=== PATIENT | female | born 1995 | race Caucasian/White ===

== ENCOUNTER 2018-03-04 16:48 | Day surgery (SDC) | payer OTHER ==
[2018-03-04 17:44] VITALS: BMI 21.7
--- NOTE | 2018-03-04 18:35 | PDOC.LDHP ---
Labor and Delivery H&P Chief complaint: other (Headache at 31 weeks) HPI: Patient of Dr Zhou Here in Triage for persistent GATES (no visual changes or other neuro complaints) Seen in [facility] for headache at 1830 HPI: 23 yo WF at 31 weeks with headache. No vertigo, no photophobia, no visual changes. Some past HX of GATES and Dr Zhou has given her a RX for tylenol # 3. Last took prior to arrival. Good FM, no VB, no ROM. No CTX. No fevers. States last did marijuana in November, when her UDS was positive in clinic. review of [employer]: complete ROS done and as per HPI Current gestational age (weeks): 31 Due date: 05/06/18 Dating criteria: last menstrual period Grav: 2 Para: 1 OB History Details: x 1 Abnormal US findings: No Current medications: pre-angie vitamins, other (Tylenol #3) Previous surgical history: other (Rt kneww arthroscopy (meniscus tear)) Allergies/Adverse Reactions: Allergies Allergy/AdvReac Type Severity Reaction Status Date / Time clindamycin Allergy Severe Stomach Verified 03/04/18 17:35 Ache dexamethasone [From Decadron] Allergy Severe Anaphylaxis Verified 03/04/18 17:35 hydromorphone [From Dilaudid] Allergy Severe Anaphylaxis Verified 03/04/18 17:36 Social history: drug use (Marijauana use...says exposed to it in her house) - Physical Exam Vital signs reviewed and normal: yes (BPs 100s.70s) General: NAD Heart: RRR Lungs: CTAB Abdomen: gravid Extremeties: no edema FHT: category 1, variability present [place] contractions every: none - Assessment Headache at 31 weeks with no evidence of PIH, no gross neurological deficits on exam. Full ROM at all extremities and no facial palsy. Speech normal. Affect wnl - Plan Plan: observation in L&D (I will order CMP and UDS for now. GATES may be secondary to marijuana exposure in house. I have seen and examined the patient at bedside. )
[2018-03-04 19:09] LABS: Amphetamine Not Detected (NotDetected); Barbiturates Screen Not Detected (NotDetected); Benzodiazepine Screen Not Detected (NotDetected); Cocaine Metabolite Screen Not Detected (NotDetected); Medtox Control Line Valid? VALID (VALID); Medtox Reader # READER 4; Methadone Not Detected (NotDetected); Methamphetamine Not Detected (NotDetected); Opiate Screen Detected (NotDetected); Oxycodone Screen Not Detected (NotDetected); Phencyclidine (PCP) Not Detected (NotDetected); THC/Cannabinoid Screen Not Detected (NotDetected); Tricyclic Screen Not Detected (NotDetected)
[2018-03-04 19:31] LABS: ALT (SGPT) 7 U/L (8-55); AST (SGOT) 11 U/L (5-34); Albumin 3.5 g/dL (3.5-5.0); Alkaline Phosphatase 76 U/L (40-150); Anion Gap 12 mmol/L (10-20); BUN (Urea Nitrogen) 7 mg/dL (7.0-18.7); Bilirubin, Total 0.4 mg/dL (0.2-1.2); Calc. Creatinine Clearance 127 mL/min (70-130); Calcium 8.6 mg/dL (7.8-10.44); Carbon Dioxide 21 mmol/L (22-29); Chloride 106 mmol/L (98-107); Estimated GFR-MDRD Greater than 90; Globulin 2.7 g/dL (2.4-3.5); Glucose 73 mg/dL (70-105); Potassium 3.5 mmol/L (3.5-5.1); Protein, Total 6.2 g/dL (6.0-8.3); Sodium 135 mmol/L (136-145)
--- NOTE | 2018-03-04 19:51 | PDOC.EVN ---
Event Note - Event Note Event Note: UDS positive for opiates but took Tyenol #3 at home prior to arrival. CMP ok BPs ok OK for outpatient follow up. No evidence acute neuro issue
== END 2018-03-04 20:00 | disposition home or self-care (01) ==
LOC: L&D/OP 16:48
PROVIDERS: ATTEND Family Medicine
DX: O99.89 Other specified diseases and conditions complicating pregnancy, childbirth and the puerperium (principal); R51 Headache; Z3A.31 31 weeks gestation of pregnancy; Z88.1 Allergy status to other antibiotic agents; Z88.5 Allergy status to narcotic agent; Z88.8 Allergy status to other drugs, medicaments and biological substances
CPT/HCPCS: 36415; 59025; 80053; 80306; 99283

== ENCOUNTER 2022-05-10 18:16 | Emergency (ER) | payer OTHER, SELFPAY ==
[2022-05-10 19:38] LABS: #Basophils 0.1 thou/uL (0.0-0.2); #Eosinphils 0.3 thou/uL (0.0-0.7); #Lymphocytes 1.9 thou/uL (1.20-3.40); #Monocytes 0.6 thou/uL (0.11-0.59); %Basophils 0.7 % (0.0-1.0); %Eosinophils 4.4 % (0.0-10.0); %Lymphocytes 24.1 % (21.0-51.0); %Monocytes 7.3 % (0.0-10.0); %Neutrophils 63.6 % (42.0-75.0); Mean Corpuscular HGB CONC 33.6 g/dL (32.0-36.0); Mean Corpuscular Hemoglobin 30.3 pg (27.0-31.0); Mean Corpuscular Volume 90.1 fL (78.0-98.0); Platelet Count 366 thou/uL (130-400); RBC Distribution Width 13.1 % (11.5-14.5); Red Blood Cell (RBC) Count 3.97 mill/uL (4.20-5.40); White Blood Cell (WBC) Count 7.9 thou/uL (4.8-10.8)
[2022-05-10 20:02] LABS: Anion Gap 12 mmol/L (10-20); BUN (Urea Nitrogen) 17 mg/dL (7.0-18.7); Calc. Creatinine Clearance 0 mL/min (70-130); Calcium 8.9 mg/dL (7.8-10.44); Carbon Dioxide 20 mmol/L (22-29); Chloride 107 mmol/L (98-107); Estimated GFR 115; Glucose 89 mg/dL (70-105); Potassium 4.4 mmol/L (3.5-5.1); Sodium 135 mmol/L (136-145)
== END 2022-05-10 21:02 | disposition home or self-care (01) ==
LOC: ERS 18:16
DX: R55 Syncope and collapse (principal); E86.0 Dehydration; F17.290 Nicotine dependence, other tobacco product, uncomplicated
CPT/HCPCS: 80048; 85025; 93005; 96360